=== PATIENT | male | born 1940 | race Caucasian/White ===

== ENCOUNTER → 2017-11-26 | Outpatient (CLI) | payer OTHER, MEDICARE ==
[~2017-11-26] MED LIST: ATOR-22 PO; FINA5TAB PO; GLC/500 PO; LISI-461 PO; LVQ750 PO
--- NOTE | 2017-11-26 13:26 | DIAGNOSTIC IMAGING REPORT ---
CHEST 2 VIEWS ROUTINE HISTORY: 77 years-old Male PNEUMONIA follow-up study in a patient with recent history of acute pneumonia COMPARISON: Chest radiograph 11/12/2017 TECHNIQUE: PA and lateral views of the chest FINDINGS: Cardiomediastinal and hilar silhouettes are within normal limits. Calcification of the aorta. There is no pneumothorax, pleural effusion or overt pulmonary edema. There is improved aeration about the lateral right lung base without focal airspace consolidation identified to suggest pneumonia. Bones of the chest appear grossly intact. IMPRESSION: 1. No acute process. 2. Improved aeration about the lateral right lung base. The above report was generated using voice recognition software. It may contain grammatical, syntax or spelling errors. Electronically signed by: Jay Fitzpatrick M.D. 11/26/2017 1:25 PM Dictated Date/Time: 11/26/2017 1:23 PM
== END | disposition home or self-care (01) ==
LOC: C.RAD1850 11:41
PROVIDERS: ATTEND Family Medicine
DX: J18.9 Pneumonia, unspecified organism (principal)

== ENCOUNTER → 2017-12-22 | Outpatient (CLI) | payer OTHER, MEDICARE ==
--- NOTE | 2017-12-22 11:38 | DIAGNOSTIC IMAGING REPORT ---
PET/CT SKULL-THIGH CLINICAL HISTORY: 77 years-old Male with patient presents with history of adenocarcinoma of the stomach and presents for initial staging. Initial treatment strategy. The patient reportedly had an EGD conducted on 12/09/2017 which showed a moderately to poorly differentiated gastric adenocarcinoma. COMPARISON: None available TECHNIQUE: The patient was injected with 10.6 mCi of F-18 fluorodeoxyglucose (FDG) and an emission scan was performed from the skull vertex to the toes. Noncontrast CT was performed for attenuation correction and anatomic localization. The blood glucose level was 103 mg/dl. FINDINGS: HEAD AND NECK: Mildly asymmetric radiotracer uptake is noted within the distribution of the left adenoid and left lingual tonsils, likely physiologic. Additionally, there is asymmetric increased tracer uptake about the right mandible within the region of dental amalgam hardware which may also be artifactual and/or odontogenic in origin. No suspicious hypermetabolic foci identified. CHEST: There is a mildly prominent nonenlarged right hilar lymph node on image 88 series 2 measuring 1.2 x 0.8 cm which is only mildly hypermetabolic with SUV max of 2.4. No pathologically enlarged lymph nodes of the chest. No suspicious hypermetabolic pulmonary foci identified. ABDOMEN AND PELVIS: There is a small sliding-type hiatal hernia. There is circumferential wall thickening of the distal esophagus with focal area of increased radiotracer uptake, SUV max of 3.7 on image 105 without definite correlate on the CT images. There is heterogeneous wall thickening with a suggested mucosal mass involving the mid gastric body and lesser curvature of the stomach measuring approximately 6.2 x 3.7 cm on image 123 series 2. The area of increased metabolic activity measures up to approximately 6.6 cm. This demonstrates an SUV max of 11.8 correlating with the previously biopsied mass. Nonenlarged periportal lymph nodes are likely physiologic measuring up to 6 mm. No hypermetabolic lymph nodes of the abdomen or pelvis identified to suggest lymphatic metastasis. There is physiologic distribution of radiotracer activity about the liver, spleen, adrenal glands and remainder of the gastrointestinal tract. The prostate is enlarged with central coarse calcifications. There is a focal area of increased tracer activity about the left central prostate with an SUV max of 6.4 measuring up to approximately 1.5 cm on the PET images, image 221 without correlate on the CT images. Mild rectal uptake is noted without mass identified, possibly physiologic. MUSCULOSKELETAL SYSTEM AND EXTREMITIES: There is a physiologic distribution of activity within the bone marrow, with no hypermetabolic foci. ADDITIONAL CT FINDINGS: Calcification of the carotid vasculature. Moderate mucoperiosteal thickening of the right maxillary sinus. Homogeneous thyroid. Moderate calcification of the thoracic aorta. Coronary arterial calcifications are noted. Mild multichamber cardiac enlargement. Mild dependent subsegmental bibasilar atelectasis. Mild bilateral bronchial wall thickening. Possible 3 mm solid nodule or vessel of the left lower lobe on image 100 series 2. No suspicious pulmonary nodules are identified. Central airways appear patent. 3 mm calcification is noted near the elias hepatis which may be vascular in origin. No definite biliary calculi identified. 1.6 cm cyst about the lateral interpolar left kidney. Indeterminate lesion about the superior pole right kidney measures 2.3 x 1.3 cm with Hounsfield units of 21 on image 131 series 2. Small fat-filled left inguinal hernia. Extensive calcification of the abdominal aorta. Colonic diverticulosis. Normal appendix. Soft tissues are within normal limits. No suspicious lytic or blastic bony lesions identified. IMPRESSION: 1. 6.2 cm hypermetabolic gastric mass likely correlates with previously biopsied gastric adenocarcinoma. Additionally, there is a small sliding-type hiatal hernia with mild wall thickening of the distal esophagus. Focal area of increased metabolic activity about the distal esophagus as detailed above may be infectious/inflammatory or reflect an additional site of neoplastic disease. Correlate with endoscopy findings. 2. No evidence of lymphatic metastasis or distant metastatic disease. 3. Mildly prominent nonenlarged right hilar lymph node is likely physiologic. 4. Prostamegaly with focal 1.5 cm area of increased metabolic activity about the left paracentral prostate. Differential considerations would include BPH nodule versus prostate carcinoma. Correlate with PSA level and clinical exam. 5. Additional incidental findings as detailed above. The above report was generated using voice recognition software. It may contain grammatical, syntax or spelling errors. Dictated: 12/22/2017 10:22 AM Transcribed: 12/22/2017 11:37 AM Dasia Electronically signed by: Jay Fitzpatrick M.D. 12/22/2017 12:08 PM Dictated Date/Time: 12/22/2017 10:22 AM
== END | disposition home or self-care (01) ==
LOC: C.PET 07:07
PROVIDERS: ATTEND Internal Medicine Hematology & Oncology
DX: C16.2 Malignant neoplasm of body of stomach (principal)